=== PATIENT | female | born 1985 | race Caucasian/White ===

== ENCOUNTER → 2022-11-09 | Outpatient (CLI) | payer BC ==
[2022-11-09 14:15] LABS: Hepatitis A Antibody IgM Nonreactive; Hepatitis B Surface Antigen Nonreactive; Hepatitis C IgG Antibody Nonreactive
[2022-11-10 10:21] LABS: Hepatitis B Core IgM Nonreactive
[2022-11-11 22:14] LABS: HIV 2 AB Non-Reactive (Non-Reactive); HIV AB P24 Non-Reactive (Non-Reactive); HIV P24 AG Non-Reactive (Non-Reactive)
== END | disposition home or self-care (01) ==
LOC: LABWHC1 08:30
PROVIDERS: ATTEND Obstetrics & Gynecology Reproductive Endocrinology
DX: A64 Unspecified sexually transmitted disease (principal); K75.9 Inflammatory liver disease, unspecified; N92.6 Irregular menstruation, unspecified
CPT/HCPCS: 36415; 80074; 86644; 86645; 86780; 86787; 86850; 86900; 86901; 87390

== ENCOUNTER 2023-11-06 16:29 | Inpatient (IN) | payer BC ==
[2023-11-06] MEDS: DINOPROSTONE 10 MG INSERT.ER VAGINAL ONE (17:11)
[2023-11-06 17:40] LABS: Basophils % (A) 0 %; Eosinophils # (A) 0.1 k/uL (0-0.7); Eosinophils % (A) 1 %; HCT 38.4 % (34.0-46.0); HGB 12.2 gm/dL (11.4-16.0); Lymphocytes # (A) 2.1 k/uL (1.0-4.8); Lymphocytes % (A) 19 %; MCH 28.2 pg (25.0-35.0); MCHC 31.9 g/dL (31.0-37.0); MCV 88.4 fL (80.0-100.0); Mean Platelet Volume 8.2; Monocytes # (A) 0.6 k/uL (0-1.0); Monocytes % (A) 6 %; Neutrophils # (A) 7.9 k/uL (1.3-7.7); Neutrophils % (A) 73 %; Platelet Count 360 k/uL (150-450); RBC 4.34 m/uL (3.80-5.40); WBC 10.9 k/uL (3.8-10.6)
[2023-11-06] MEDS ORDERED: NALBUPHINE 10 MG/ML (10 ML MDV) IV PRN (18:12)
[2023-11-06] MEDS ORDERED: CARBOPROST TROMETHAMINE 250 MCG/ML 1 ML AMP IM PRN (18:12)
[2023-11-06] MEDS ORDERED: LIDOCAINE 0.5% (PF) 5 MG/ML (50 ML SDV) SQ PRN (18:12)
[2023-11-06] MEDS ORDERED: OXYTOCIN 10 UNIT/ML 1 ML VIAL IM PRN (18:12)
[2023-11-06] MEDS ORDERED: miSOPROStoL 200 MCG TAB PO PRN (18:12)
[2023-11-06] MEDS ORDERED: miSOPROStoL 200 MCG TAB RECTAL PRN (18:12)
[2023-11-06] MEDS ORDERED: TERBUTALINE 1 MG/ML VIAL SQ PRN (18:12)
[2023-11-06] MEDS ORDERED: TRANEXAMIC 1,000 MG/100ML-NACL 1,000 MG in EMPTY BAG 1 BAG IV PRN (18:12)
[2023-11-06] MEDS ORDERED: METHYLERGONOVINE 0.2 MG/ML 1 ML AMP IM PRN (18:12)
--- NOTE | 2023-11-06 18:14 | P.HPOB ---
History of Present Illness H&P Date: 11/06/23 Chief Complaint: IUP at 37 weeks, chronic hypertension This is a 38-year-old 1 para 0 at 37-0/7 weeks that presents to labor and delivery for Cervidil induction of labor secondary to chronic hypertension on labetalol. Patient is taking labetalol 300 mg 3 times daily with blood pressures 130s to 140s over 80s to 90s. Patient denies signs or symptoms of preeclampsia. In addition patient is AMA with history of a LEEP. This is a conceived via IVF. On blood work this patient has a blood type of O+, rubella status immune, hepatitis B surface engine negative, HIV negative, RPR is nonreactive, group B strep culture is positive. Review of Systems Constitutional: Denies chills, Denies fatigue, Denies fever Ears, nose, mouth and throat: Denies headache Cardiovascular: Reports leg edema Respiratory: Denies dyspnea Gastrointestinal: Denies nausea, Denies vomiting Genitourinary: Reports Past Medical History History of Any Multi-Drug Resistant Organisms: None Reported Smoking Status: Never smoker Medications and Allergies Home Medications Medication Instructions Recorded Confirmed Type Esomeprazole Magnesium [NexIUM] 20 mg PO DAILY 10/29/23 11/06/23 History Labetalol [Trandate] 300 mg PO TID 10/29/23 11/06/23 History Vit No.179/Iron/Folic 1 tab PO DAILY 10/29/23 11/06/23 History [ Tablet] Allergies Allergy/AdvReac Type Severity Reaction Status Date / Time No Known Allergies Allergy Verified 11/06/23 16:43 Exam Osteopathic Statement: *. No significant issues noted on an osteopathic structural exam other than those noted in the History and Physical/Consult. Intake and Output 11/06/23 11/06/23 11/06/23 06:59 14:59 22:59 Other: Weight 111.13 kg Targeted physical exam is performed this date General is well-nourished well- developed female in no acute distress, breathing is nonlabored, heart has a regular and rhythm, abdomen is gravid, on cervical exam she is 1 thick high vertex presentation by ultrasound, Cervidil was placed without difficulty. heart tones noted to be category 1 and she is alden irregularly. Results Result Diagrams: 11/06/23 17:00 Abnormal Lab Results - Last 24 Hours (Table) 11/06/23 Range/Units 17:00 WBC 10.9 H (3.8-10.6) k/uL Neutrophils # 7.9 H (1.3-7.7) k/uL Assessment and Plan (1) 37 or more weeks gestation of Current Visit: Yes Status: Acute Code(s): TML3351 - SNOMED Code(s): 67298283 (2) Chronic hypertension Current Visit: Yes Status: Acute Code(s): I10 - ESSENTIAL (PRIMARY) HYPERTENSION SNOMED Code(s): 25956475 (3) AMA (advanced maternal age) primigravida 35+ Current Visit: Yes Status: Acute Code(s): O09.519 - SUPERVISION OF ELDERLY PRIMIGRAVIDA, UNSPECIFIED TRIMESTER SNOMED Code(s): 56128311 Plan: 38-year-old G1, P0 at 37-0/7 weeks presents for Cervidil induction of labor secondary to chronic hypertension. Patient is currently taking labetalol 300 mg 3 times a day. Patient is admitted and Cervidil was placed without difficulty. Options for analgesia are discussed including Nubain, nitrous, epidural. P atient will consider.
[2023-11-07] MEDS: LACTATED RINGERS 1,000 ML BAG IV STA (05:50)
[2023-11-07] MEDS: AMPICILLIN 2,000 MG in SODIUM CHLORIDE 0.9% 100 ML IVPB STA (05:51)
[2023-11-07] MEDS: OXYTOCIN 30 UNITS/500 ML NS 30 UNIT in SALINE 1 500ML.BAG IV SCH (06:08)
[2023-11-07] MEDS: AMPICILLIN 1,000 MG in SODIUM CHLORIDE 0.9% 50 ML IVPB SCH (09:40)
[2023-11-07] MEDS ORDERED: ROPIVACAINE 5 MG/ML 30 ML VIAL ONE (11:48)
[2023-11-07] MEDS ORDERED: fentaNYL (PF) 50 MCG/ML 5 ML AMP ONE (11:48)
[2023-11-07] MEDS ORDERED: SODIUM CHLORIDE 0.9% 250 ML BAG ONE (11:48)
[2023-11-07 12:39] LABS: Basophils % (A) 0 %; Eosinophils # (A) 0.1 k/uL (0-0.7); Eosinophils % (A) 1 %; HCT 37.9 % (34.0-46.0); HGB 12.4 gm/dL (11.4-16.0); Lymphocytes # (A) 1.9 k/uL (1.0-4.8); Lymphocytes % (A) 14 %; MCH 29.4 pg (25.0-35.0); MCHC 32.8 g/dL (31.0-37.0); MCV 89.7 fL (80.0-100.0); Mean Platelet Volume 7.6; Monocytes # (A) 0.6 k/uL (0-1.0); Monocytes % (A) 4 %; Neutrophils # (A) 10.9 k/uL (1.3-7.7); Neutrophils % (A) 80 %; Platelet Count 328 k/uL (150-450); RBC 4.23 m/uL (3.80-5.40); RDW 13.8 % (11.5-15.5); WBC 13.7 k/uL (3.8-10.6)
[2023-11-07 12:44] LABS: INR 0.9 (<1.2); Partial Thromboplastin Time 24.9 sec (22.0-30.0); Prothrombin Time 9.7 sec (10.0-12.5)
[2023-11-07 12:55] LABS: ALT 14 U/L (4-34); AST 19 U/L (14-36); African American GFR (CKD) >90 (>60 ml/min/1.73 sqM); Albumin 3.4 g/dL (3.5-5.0); Alkaline Phosphatase 114 U/L (38-126); Anion Gap 7 mmol/L; Blood Urea Nitrogen 5 mg/dL (7-17); Calcium 9.2 mg/dL (8.4-10.2); Carbon Dioxide 16 mmol/L (22-30); Chloride 111 mmol/L (98-107); Glucose 91 mg/dL (74-99); Non-African American GFR(CKD) >90 (>60 ml/min/1.73 sqM); Potassium 4.3 mmol/L (3.5-5.1); Sodium 134 mmol/L (137-145); Total Bilirubin 0.4 mg/dL (0.2-1.3); Total Protein 6.2 g/dL (6.3-8.2)
[2023-11-07] MEDS: CITRIC ACID-SODIUM CITRATE 15 ML CUP PO ONE (16:30)
[2023-11-07] MEDS ORDERED: miSOPROStoL 200 MCG TAB PO PRN (16:39)
[2023-11-07] MEDS ORDERED: CARBOPROST TROMETHAMINE 250 MCG/ML 1 ML AMP IM PRN (16:39)
[2023-11-07] MEDS ORDERED: TRANEXAMIC 1,000 MG/100ML-NACL 1,000 MG in EMPTY BAG 1 BAG IV PRN (16:39)
[2023-11-07] MEDS ORDERED: METHYLERGONOVINE 0.2 MG/ML 1 ML AMP IM PRN (16:39)
[2023-11-07] MEDS ORDERED: OXYTOCIN 10 UNIT/ML 1 ML VIAL IM PRN (16:39)
[2023-11-07] MEDS ORDERED: NALBUPHINE 10 MG/ML (10 ML MDV) ONE (16:54)
[2023-11-07] MEDS ORDERED: OXYTOCIN 30 UNITS/500 ML NS BAG IV ONE (16:54)
[2023-11-07] MEDS ORDERED: ONDANSETRON 4 MG/2 ML VIAL ONE (16:54)
[2023-11-07] MEDS ORDERED: ONDANSETRON 4 MG/2 ML VIAL IVP PRN ×2 (17:20→17:58)
[2023-11-07] MEDS ORDERED: NALOXONE 0.4 MG/ML 1 ML VIAL IV PRN ×2 (17:20→17:58)
[2023-11-07] MEDS ORDERED: diphenhydrAMINE 50 MG/ML 1 ML VIAL IVP PRN ×3 (17:20→17:58)
[2023-11-07 17:32] LABS: Appearance,Urine Clear (Clear); Bilirubin,Urine Negative (Negative); Blood,Urine Negative (Negative); Color,Urine Colorless; Glucose,Urine (UA) Negative (Negative); Ketones,Urine 1+ (Negative); Leukocyte Esterase,Urine Negative (Negative); Nitrite,Urine Negative (Negative); PH, Urine 7.5 (5.0-8.0); Protein,Urine Negative (Negative); Specific Gravity,Urine 1.011 (1.001-1.035); Urobilinogen,Urine <2.0 mg/dL (<2.0)
[2023-11-07 17:46] LABS: Creatinine,Urine Random 62.8 mg/dL; Protein/Creatinine Ratio,Urine 0.159
[2023-11-07] MEDS ORDERED: ZOLPIDEM 5 MG TAB PO PRN (17:58)
[2023-11-07] MEDS ORDERED: diphenhydrAMINE 25 MG CAP PO PRN (17:58)
[2023-11-07] MEDS ORDERED: METOCLOPRAMIDE 5 MG/ML 2 ML VIAL IVP PRN (17:58)
[2023-11-07] MEDS ORDERED: diphenhydrAMINE 50 MG CAP PO PRN (17:58)
--- NOTE | 2023-11-07 17:58 | P.OP ---
Date of Procedure: 11/07/23 Preoperative Diagnosis: IUP at 37 weeks, chronic hypertension, nonreassuring status Postoperative Diagnosis: Same Procedure(s) Performed: Primary low-transverse section Anesthesia: epidural Surgeon: Lula Qiu Correction Officer Head #1: Prabha Willis Estimated Blood Loss (ml): 500 IV fluids (ml): 1,000 Urine output (ml): 150 (Clear yellow) Pathology: none sent Condition: stable Disposition: observation Indications for Procedure: Recurrent variable decelerations with contractions down to the 60s, remote from delivery. Operative Findings: Viable female delivered via vacuum assist at 1511, weight of 5 pounds 14 ounces, Apgars of 7 and 9 at 1 and 5 minutes respectively. Description of Procedure: The patient was prepped and draped in the usual fashion after epidural anesthesia was found to be adequate. A Pfannenstiel incision was made and extended of the abdominal cavity without difficulty. The bladder peritoneum was elevated and incised and reflected distally. A 2 cm incision was made in the transverse plane of the lower uterine segment to enter the uterus at which time clear fluid was noted. The incision was extended in both directions bluntly the head was encountered within the field and delivered up and through the incision via vacuum assist where the nose and mouth were thoroughly suctioned. Remainder of the infant was delivered onto the surgical field where the cord was doubly clamped, cut, and the infant was passed for resuscitative measures with weight and Apgars as noted above. The placenta was delivered manually, intact, and was grossly normal with a grossly normal three-vessel cord. The uterus was exteriorized and the interior cavity of the uterus swept of any remaining placental and membranous fragments with a laparotomy sponge. The margins of the incision were grasped with Frausto clamps and the incision closed in 2 layers. First layer was a running locking layer of 0 Vicryl from margin to margin followed by a second layer of imbricating 0 Vicryl from margin to margin. Any small points of bleeding were then made hemostatic with the Bovie. Once hemostasis was achieved, the posterior cul-de-sac was suctioned with a guard and the uterine and ovarian findings are as noted above. The uterus was replaced within the abdominal cavity and the gutters swept of any remaining blood fluid or clot. The incision was again reexamined and hemostasis was noted to be excellent. Any small point of bleeding were made hemostatic with the Bovie. Once hemostasis was achieved the parietal peritoneum was loosely reapproximated. The layer of muscles were examined and made hemostatic with the Bovie. Attention was then turned to the fascia which was closed with 0 Vicryl in a running fashion from 1 lateral edge to the other. The subcutaneous tissues were irrigated, made hemostatic with the Bovie, and reapproximated with a running stitch of 30 Vicryl. The skin was reapproximated with 4-0 Vicryl. Estimated blood loss for the case was approximately 600 mL. All sponge instrument and needle counts are correct. There were no complications. The patient tolerated the procedure well and proceeded to the recovery room in stable condition. Both mother and are resting comfortably in recovery.
[2023-11-07] MEDS ORDERED: OXYTOCIN 30 UNITS/500 ML NS 30 UNIT in SALINE 1 500ML.BAG IV SCH (18:00)
[2023-11-07] MEDS: ACETAMINOPHEN IV (For NPO) 1,000 MG in EMPTY BAG 1 BAG IVPB SCH (18:24)
[2023-11-07] MEDS: LACTATED RINGERS 1,000 ML IV SCH (19:36)
[2023-11-07] MEDS: ACETAMINOPHEN TAB 500 MG TAB PO SCH (23:44)
[2023-11-07] MEDS: SENNOSIDES-DOCUSATE SODIUM 1 EACH TAB PO SCH (23:53)
[2023-11-07] MEDS: IBUPROFEN IV 800 MG in SODIUM CHLORIDE 0.9% 250 ML IV SCH (23:53)
[2023-11-08] MEDS: IBUPROFEN 600 MG TAB PO SCH (02:47)
[2023-11-08] MEDS: LACTATED RINGERS 1,000 ML IV SCH (02:47)
[2023-11-08] MEDS: PRENATAL VIT-IRON-FOLIC ACID 1 EACH TABLET PO SCH (02:50)
[2023-11-08 06:45] LABS: Basophils % (A) 0 %; Eosinophils # (A) 0.1 k/uL (0-0.7); Eosinophils % (A) 1 %; HCT 30.9 % (34.0-46.0); HGB 10.3 gm/dL (11.4-16.0); Lymphocytes # (A) 1.8 k/uL (1.0-4.8); Lymphocytes % (A) 15 %; MCHC 33.3 g/dL (31.0-37.0); MCV 90.1 fL (80.0-100.0); Mean Platelet Volume 8.6; Monocytes # (A) 0.7 k/uL (0-1.0); Monocytes % (A) 6 %; Neutrophils # (A) 9.1 k/uL (1.3-7.7); Neutrophils % (A) 77 %; Platelet Count 252 k/uL (150-450); RBC 3.43 m/uL (3.80-5.40); RDW 14.2 % (11.5-15.5); WBC 11.8 k/uL (3.8-10.6)
--- NOTE | 2023-11-08 06:48 | P.PN ---
Progress Note - Text Progress Note Date: 11/08/23 post op day one status post C/S under epidural , pateints doing well , no anesthesia related complications
--- NOTE | 2023-11-08 09:55 | P.PNOBGPC ---
Subjective - Subjective Principal diagnosis: s/p Interval history: The patient is doing well this morning and had no acute events overnight. She has no complaints this morning. She reports minimal lochia, passing flatus, voiding without difficulty, ambulating, and eating/drinking without nausea or vomiting. She is breast feeding her without difficulty. She denies chest pain, shortness of breathing, fevers, or chills overnight. She denies pain or swelling in the legs. Patient reports: Reports appetite normal, Reports voiding normally, Reports pain well controlled, Reports ambulating normally [place]: doing well, nursing well Objective - Vital Signs Latest vital signs: Vital Signs Temp Pulse Resp BP Pulse Ox 11/08/23 08:44 98.2 F 92 17 123/76 96 11/08/23 06:00 98.3 F 89 20 109/67 97 11/08/23 00:00 98 F 87 18 134/85 98 11/07/23 19:40 96 18 141/65 99 11/07/23 19:25 97 18 139/63 11/07/23 19:10 90 18 136/63 96 11/07/23 18:55 84 16 136/63 95 11/07/23 18:40 65 16 135/65 97 11/07/23 18:25 102 H 17 150/72 95 11/07/23 18:20 102 H 17 97 11/07/23 18:10 103 H 17 151/73 97 11/07/23 17:55 94 17 155/72 97 11/07/23 17:40 97.2 F L 96 17 142/92 98 Intake and Output 11/07/23 11/08/23 11/08/23 22:59 06:59 14:59 Intake Total 573.067 Output Total 1522 700 Balance -948.933 -700 Intake: IV 150 Intake, IV Titration 23.067 Amount Oxytocin 30 Units/500 ml 23.067 Ns 30 unit In Saline 1 500ml.bag @ Per Protocol IV .Q0M [facility] Rx#:[id number] Oral 400 Output: Urine 800 700 Output, Quantitative 722 Blood Loss Other: Voiding Method Indwelling Catheter - Exam Extremities: Present: normal Abdomen: Present: normal appearance, soft Incision: Present: normal, dry, intact Uterus: Present: normal, firm - Labs Labs: Abnormal Lab Results - Last 24 Hours (Table) 11/07/23 11/07/23 11/07/23 Range/Units 11:52 11:52 11:52 WBC 13.7 H (3.8-10.6) k/uL RBC (3.80-5.40) m/uL Hgb (11.4-16.0) gm/dL Hct (34.0-46.0) % Neutrophils # 10.9 H (1.3-7.7) k/uL PT 9.7 L (10.0-12.5) sec Sodium 134 L (137-145) mmol/L Chloride 111 H (98-107) mmol/L Carbon Dioxide 16 L (22-30) mmol/L BUN 5 L (7-17) mg/dL Creatinine 0.42 L (0.52-1.04) mg/dL Total Protein 6.2 L (6.3-8.2) g/dL Albumin 3.4 L (3.5-5.0) g/dL Urine Ketones (Negative) 11/07/23 11/08/23 Range/Units 14:50 05:34 WBC 11.8 H (3.8-10.6) k/uL RBC 3.43 L (3.80-5.40) m/uL Hgb 10.3 L (11.4-16.0) gm/dL Hct 30.9 L (34.0-46.0) % Neutrophils # 9.1 H (1.3-7.7) k/uL PT (10.0-12.5) sec Sodium (137-145) mmol/L Chloride (98-107) mmol/L Carbon Dioxide (22-30) mmol/L BUN (7-17) mg/dL Creatinine (0.52-1.04) mg/dL Total Protein (6.3-8.2) g/dL Albumin (3.5-5.0) g/dL Urine Ketones 1+ H (Negative) Assessment and Plan Assessment: 38 year old now POD#1 s/p primary secondary to persistent Category II heart tones during medical induction of labor for cHTN Plan: 1. Postoperative. Patient meeting all postoperative milestones appropriately. 2. Viable female infant. Doing well at bedside. Dispo: Anticipate discharge home tomorrow
[2023-11-08] MEDS: LABETALOL 200 MG TAB PO SCH (18:32)
[2023-11-09 00:40] VITALS: RESP 16
[2023-11-09 10:32] VITALS: BP 130/81; PULSE 88; TEMP 98.5
--- NOTE | 2023-11-09 10:48 | P.DS ---
Providers Date of admission: 11/06/23 16:29 Expected date of discharge: 11/09/23 Attending physician: Lula Qiu Primary care physician: Stated None Hospital Course: Ms. Guerra is a 38 year old now POD#2 s/p primary section for persistent Category II FHTs remote from delivery after medical induction of labor for poorly controlled cHTN at 37 weeks. The patient is doing well this morning and had no acute events overnight. She has no complaints this morning. She reports minimal lochia, passing flatus, voiding without difficulty, ambulating, and eating/drinking without nausea or vomiting. Infant doing well at bedside. She denies chest pain, shortness of breathing, fevers, or chills overnight. Blood pressures have been normotensive throughout her course, she has been reduced from Labetalol 300mg TID to Labetalol 200mg BID. She denies pain or swelling in the legs. Postoperative restrictions are reviewed with the patient including pelvic rest for 6 weeks, no lifting heavier than 15 pounds for 6 weeks. The patient is encouraged to call the office if she experiences any heavy bleeding, foul-smelling discharge, breast complaints, or any if she has any other concerns. She will follow up in the office with Dr. Qiu in 2 weeks for postoperative exam. She will use Motrin and Tylenol as needed for pain. All questions are answered. Assessment: 38 year old now POD#2 s/p primary Patient Condition at Discharge: Good Plan - Discharge Summary New Discharge Prescriptions: New Acetaminophen Tab [Tylenol] 650 mg PO Q6H PRN #30 tab PRN Reason: Mild Pain (Scale 1 To 3) Ibuprofen [Motrin] 600 mg PO Q6HR PRN #30 tab PRN Reason: Mild Pain (Scale 1 To 3) No Action Labetalol [Trandate] 300 mg PO TID Esomeprazole Magnesium [NexIUM] 20 mg PO DAILY Vit No.179/Iron/Folic [ Tablet] 1 tab PO DAILY Discharge Medication List Esomeprazole Magnesium [NexIUM] 20 mg PO DAILY 10/29/23 [History] Labetalol [Trandate] 300 mg PO TID 10/29/23 [History] Vit No.179/Iron/Folic [ Tablet] 1 tab PO DAILY 10/29/23 [History] Acetaminophen Tab [Tylenol] 650 mg PO Q6H PRN #30 tab 11/09/23 [Rx] Ibuprofen [Motrin] 600 mg PO Q6HR PRN #30 tab 11/09/23 [Rx] Follow up Appointment(s)/Referral(s): Lula Qiu DO [Doctor of Osteopathic Medicine] - 12/18/23 9:15 am Activity/Diet/Wound Care/Special Instructions: Instructions 1. Do not begin any exercise program for 3 weeks. 2. Do not resume sexual relations for 6 weeks or longer if uncomfortable. 3. You may take tub baths or showers at any time. 4. You may use tampons if desired after 6 weeks. 5. Keep any areas repaired with stitches clean and dry. 6. If you are not nursing, wear a good fitting, supportive bra during the day and limit fluid intake for at least 1 week to prevent breast engorgement. 7. Call the office, , within the next week to make appointment for your 6 week checkup if it has not already been made. 8. Report any of the following occurrences to the doctor promptly: a. Heavy, excessive bleeding b. Chills, fever c. Burning or frequency of urination d. Pain or redness and breasts if nursing e. Increasing pain or swelling of vulva (stitches). In addition to the above instructions, the following additional should be followed: 1. No heavy lifting or straining (exercising) until after 6 week checkup. 2. Keep abdominal incision clean and dry: You may wear a dressing if more comfortable. 3. Make office appointment for 2 weeks after delivery date. Discharge Disposition: HOME SELF-CARE
[2023-11-09] MEDS ORDERED: FERROUS SULFATE 325 MG TAB PO SCH (12:30)
== END 2023-11-09 11:46 | disposition home or self-care (01) | DRG 787 ==
LOC: 4FBP 16:29
PROVIDERS: ADMIT Obstetrics & Gynecology Obstetrics; ATTEND Obstetrics & Gynecology Obstetrics
PROC: 3E0P7VZ Introduction of Hormone into Female Reproductive, Via Natural or Artificial Opening (ICD-10-PCS; 2023-11-07)
PROC: 4A0HXCZ Measurement of Products of Conception, Cardiac Rate, External Approach (ICD-10-PCS; 2023-11-07)
PROC: 10D00Z1 Extraction of Products of Conception, Low, Open Approach (ICD-10-PCS; principal; 2023-11-07 17:58)
DX: O76 Abnormality in fetal heart rate and rhythm complicating labor and delivery (principal); O10.92 Unspecified pre-existing hypertension complicating childbirth; Z37.0 Single live birth; Z3A.37 37 weeks gestation of pregnancy
CPT/HCPCS: 80053; 81003; 82570; 84156; 85025; 85610; 85730; 86850; 86900; 86901; 88307